=== PATIENT | male | born 1965 ===

== ENCOUNTER 2019-03-15 12:46 | Emergency (ER) | payer OTHER ==
[~2019-03-15] VITALS: Ht 172.7 cm; Wt 102.1 kg
== END 2019-03-15 15:27 | disposition home or self-care (01) ==
LOC: ER 12:46
DX: S60.415A Abrasion of left ring finger, initial encounter (principal); W26.8XXA Contact with other sharp object(s), not elsewhere classified, initial encounter; Y93.89 Activity, other specified; Y92.89 Other specified places as the place of occurrence of the external cause; Y99.8 Other external cause status